=== PATIENT | male | born 1960 | race Caucasian/White ===

== ENCOUNTER → 2019-01-06 | Day surgery (SDC) | payer OTHER ==
[~2019-01-06] MED LIST: Lactated Ringers 1,000 ML IV SCH; Propofol 200 MG/20 ML SDV IV ONE
--- NOTE | 2019-01-06 14:46 | OR ---
DATE OF OPERATION: 01/06/2019 PREOPERATIVE DIAGNOSIS: SCREENING COLONOSCOPY. POSTOPERATIVE DIAGNOSIS: SCREENING COLONOSCOPY. SURGEON: René Frye MD PROCEDURE: FULL-LENGTH COLONOSCOPY WITH FORCEPS POLYP REMOVAL X1, BIOPSY X1. ANESTHESIA: MAC via GEOPHYSICAL PARTY CHIEF. COMPLICATIONS: None. SPECIMEN: 1. Hyperplastic polyp, sigmoid colon. 2. Peridiverticular colitis, rectosigmoid junction. FINDINGS: 1. Full-length colonoscopy. 2. [id number] left-sided diverticulosis. 3. Small sessile polyp, likely hyperplastic. RECOMMENDATIONS: Followup colonoscopy in 10 years pending path report. INDICATIONS: The patient was in for a physical with Jorge L Ramirez. Routine screening colonoscopy recommended. DESCRIPTION OF PROCEDURE: The patient was prepped and draped, placed in the left lateral decubitus position. A lubricated Olympus colonoscope was inserted and safely and easily advanced to the cecum. The bowel prep was for the most part fine. The patient did have a lot of stool at couple of areas in the sigmoid and in the rectal vault, but otherwise was clear. Upon withdrawal, the patient's cecum, ascending and transverse colons were benign. He had moderate- to-severe diverticular disease throughout the entire left colon from the mid descending all the way down through the rectosigmoid junction. There were a few small scattered areas of peridiverticular inflammation, but no active infection. We did do 1 biopsy at the rectosigmoid junction. In the sigmoid colon, the patient had 1 small flat sessile polyp, likely hyperplastic removed in its entirety with forceps. Otherwise, colon appeared benign. The rectal vault was unremarkable. Retroflexion of the scope in the rectum showed no perianal lesions. Air was suctioned, scope removed without complication. ZOLTAN/BON /[id number]
== END ==
LOC: CC.SDS 08:55
PROVIDERS: ATTEND Family Medicine
DX: Z12.11 Encounter for screening for malignant neoplasm of colon (principal); K63.5 Polyp of colon; K57.30 Diverticulosis of large intestine without perforation or abscess without bleeding; I10 Essential (primary) hypertension; E66.9 Obesity, unspecified; Z68.38 Body mass index [BMI] 38.0-38.9, adult; Z87.891 Personal history of nicotine dependence; Z79.899 Other long term (current) drug therapy; Z88.6 Allergy status to analgesic agent
CPT/HCPCS: J2704; J7120

== ENCOUNTER 2022-03-19 17:24 | Inpatient (IN) | payer OTHER ==
[2022-03-19] MEDS ORDERED: cefTRIAXone 1 GM Vial ONE (17:48)
[2022-03-19 18:05] LABS: CHLORIDE,CL 94 mEq/L (98-106); SODIUM,NA 134 mEq/L (136-145)
[2022-03-19] MEDS ORDERED: Sodium Chloride 0.9% 1,000 ML IV ONE (18:08)
[2022-03-19] MEDS ORDERED: VANCOmycin 2 GM/400 ML 2 GM in Premix Bag 1 BAG IV ONE (18:09)
[2022-03-19] MEDS ORDERED: cefTRIAXone 1 GM in Sodium Chloride 0.9% 50 ML IV ONE (18:10)
[2022-03-19 18:11] LABS: ESTIMATED GFR 46 mL/min (>=60)
[2022-03-19] MEDS ORDERED: Enoxaparin 40 MG/0.4 ML Syringe SUBCUT SCH ×2 (20:00→21:00)
[2022-03-19] MEDS: HYDROMORPHONE 2 MG PO PRN (20:00)
[2022-03-19] MEDS: Acetaminophen 325 MG Tab PO PRN (20:00)
[2022-03-19] MEDS ORDERED: Sodium Chloride 0.9% 10 ML Syringe FLUSH PRN (20:26)
[2022-03-19] MEDS ORDERED: Ondansetron 4 MG/2 ML SDV IV PRN (20:26)
[2022-03-19] MEDS ORDERED: Potassium Chloride 10 MEQ Tab.ER PO ONE (20:35)
[2022-03-20] MEDS: Acetaminophen 325 MG Tab PO PRN ×3 (04:31→21:26)
[2022-03-20] MEDS ORDERED: MINERALS PO SCH (08:00)
[2022-03-20] MEDS ORDERED: VIT E PO SCH (08:00)
[2022-03-20] MEDS ORDERED: Allopurinol 300 MG Tab PO SCH (08:00)
[2022-03-20] MEDS ORDERED: [UNRECOGNIZED DRUG - OTHER] PO SCH (08:00)
[2022-03-20] MEDS ORDERED: VIT C PO SCH (08:00)
[2022-03-20] MEDS ORDERED: LUTEIN PO SCH (08:00)
[2022-03-20] MEDS ORDERED: ALLOPURINOL 300 MG PO SCH (08:44)
[2022-03-20] MEDS ORDERED: Furosemide 40 MG Tab **PTOM PO SCH (08:45)
[2022-03-20] MEDS: HYDROMORPHONE 2 MG PO PRN ×2 (09:06→18:24)
[2022-03-20] MEDS: Gabapentin 300 MG Cap *PTOM PO SCH ×4 (09:06→19:34)
[2022-03-20] MEDS: Docusate Sodium 100 MG Cap PO SCH (09:07)
[2022-03-20] MEDS: Aspirin 81 MG Tab.Chew PO SCH (09:07)
[2022-03-20] MEDS: HYDROCHLOROTHIAZIDE 25 MG PO SCH (09:08)
[2022-03-20] MEDS: VANCOmycin 1.5 GM/300 ML 1.5 GM in Premix Bag 1 BAG IV SCH ×2 (10:46→22:03)
[2022-03-20] MEDS: Polyethylene Glycol 3350 Powder 17 GM Packet PO SCH (10:46)
[2022-03-20] MEDS ORDERED: Potassium Chloride Riders 40 MEQ in Premix Bag 1 BAG IV ONE (12:00)
[2022-03-20] MEDS ORDERED: Sodium Chloride 0.9% 1,000 ML IV SCH (17:00)
[2022-03-20] MEDS: Enoxaparin 40 MG/0.4 ML Syringe SUBCUT SCH (19:34)
[2022-03-20] MEDS: ROSUVASTATIN 10 MG PO SCH (19:35)
[2022-03-20] MEDS ORDERED: Doxepin 25 MG Cap PO SCH ×2 (20:00)
[2022-03-20] MEDS ORDERED: Enoxaparin 40 MG/0.4 ML Syringe SUBCUT SCH (21:00)
[2022-03-21] MEDS: Acetaminophen 325 MG Tab PO PRN ×3 (04:19→20:03)
[2022-03-21] MEDS: HYDROMORPHONE 2 MG PO PRN ×3 (04:33→14:52)
[2022-03-21] MEDS: Docusate Sodium 100 MG Cap PO SCH (07:47)
[2022-03-21] MEDS: Aspirin 81 MG Tab.Chew PO SCH (07:47)
[2022-03-21] MEDS: Gabapentin 300 MG Cap *PTOM PO SCH ×2 (07:48→12:36)
[2022-03-21] MEDS: Polyethylene Glycol 3350 Powder 17 GM Packet PO SCH (07:49)
[2022-03-21] MEDS: HYDROCHLOROTHIAZIDE 25 MG PO SCH (07:49)
[2022-03-21] MEDS: VANCOmycin 1.5 GM/300 ML 1.5 GM in Premix Bag 1 BAG IV SCH ×2 (10:18→10:56)
[2022-03-21] MEDS: VANCOmycin 2 GM/400 ML 2 GM in Premix Bag 1 BAG IV SCH ×2 (10:44→21:53)
[2022-03-21] MEDS ORDERED: Cyclobenzaprine 10 MG Tab PO PRN (14:59)
[2022-03-21] MEDS: Gabapentin 300 MG Cap PO SCH ×2 (16:12→19:55)
[2022-03-21] MEDS: Enoxaparin 40 MG/0.4 ML Syringe SUBCUT SCH (19:55)
[2022-03-21] MEDS: ROSUVASTATIN 10 MG PO SCH (19:56)
[2022-03-21] MEDS: HYDROmorphone 2 MG Tab PO PRN (20:03)
[2022-03-22] MEDS: HYDROmorphone 2 MG Tab PO PRN (03:46)
[2022-03-22] MEDS: Acetaminophen 325 MG Tab PO PRN (03:47)
[2022-03-22] MEDS: Docusate Sodium 100 MG Cap PO SCH (07:37)
[2022-03-22] MEDS: Gabapentin 300 MG Cap PO SCH (07:38)
[2022-03-22] MEDS: Polyethylene Glycol 3350 Powder 17 GM Packet PO SCH (07:38)
[2022-03-22] MEDS: Aspirin 81 MG Tab.Chew PO SCH (07:38)
[2022-03-22] MEDS ORDERED: Potassium Chloride 10 MEQ Tab.ER PO SCH (08:00)
[2022-03-22] MEDS ORDERED: Allopurinol 300 MG Tab PO SCH (08:00)
[2022-03-22] MEDS ORDERED: Hydrochlorothiazide 25 MG Tab PO SCH (08:00)
[2022-03-22] MEDS ORDERED: Ketorolac 30 MG/ML SDV IVPUSH ONE (08:49)
[2022-03-22] MEDS ORDERED: Take Home: Sulfamethoxazole/Trimethoprim 800-160 MG Tab, 2 Tab Pack PO ONE (09:03)
[2022-03-22] MEDS: VANCOmycin 2 GM/400 ML 2 GM in Premix Bag 1 BAG IV SCH (09:26)
== END 2022-03-22 12:35 | disposition home or self-care (01) | DRG 863 ==
LOC: CC.ED 17:24 → UNDOADMOB 19:05 → CC.MS 19:05 → OBSVTOIN 03-21 10:56
PROVIDERS: ADMIT Nurse Practitioner Family; ATTEND Nurse Practitioner Family
DX: T81.40XA Infection following a procedure, unspecified, initial encounter (principal); L03.116 Cellulitis of left lower limb; E87.6 Hypokalemia; E78.00 Pure hypercholesterolemia, unspecified; I10 Essential (primary) hypertension; M10.9 Gout, unspecified; Z96.652 Presence of left artificial knee joint; Z20.822 Contact with and (suspected) exposure to COVID-19; Z79.82 Long term (current) use of aspirin; Z79.899 Other long term (current) drug therapy; Z88.6 Allergy status to analgesic agent; Z87.891 Personal history of nicotine dependence
CPT/HCPCS: 36415; 73560-LT; 80053; 80202; 83605; 83735; 85025; 86140; 87040; 87804; 96365; 96366; 96367; 96372; 96375; 99223; 99239; 99284-25; A9270-GY; G0378; J0696; J1650; J1885; J3370; J3480; J7030; U0002